=== PATIENT | male | born 1960 | race Caucasian/White ===

== ENCOUNTER 2017-11-06 13:30 | Emergency (ER) | payer OTHER ==
[~2017-11-06] VITALS: Ht 177.8 cm; Wt 136.4 kg
[~2017-11-06 13:30] MED LIST: ALBU18HF INH; ALPR0.257 PO; ANDROGEL TP; ASCO500T8 PO; ASPI-515 PO; CODEINE PO; CYCL10TA50 PO; FLUT1DIS3 IH; HYDR25TA6 PO; LEVO125T PO; LISI-170 PO; MELO15TA24 PO; METF-162 PO; MONT10TA6 PO; OMEP20TA62 PO; PROMETHAZINE PO; SIMV20TA3 PO; TESTOSTERONE IM; VITAMIN B12 PO; VITAMIN B6 PO
[2017-11-06] MEDS ORDERED: OXYcodone/APAP 5/325MG TABLET ONE (14:09)
[2017-11-06] MEDS ORDERED: OXYcodone/APAP 5/325MG TABLET PO ONE (14:30)
[2017-11-06 16:03] VITALS: BP 132/84
== END 2017-11-06 16:05 | disposition home or self-care (01) ==
LOC: ED 15:50
DX: S80.02XA Contusion of left knee, initial encounter (principal); E03.9 Hypothyroidism, unspecified; E11.9 Type 2 diabetes mellitus without complications; I10 Essential (primary) hypertension; I82.412 Acute embolism and thrombosis of left femoral vein
CPT/HCPCS: 29505; 99284

== ENCOUNTER 2017-11-15 13:37 | Observation (INO) | payer OTHER ==
[~2017-11-15] VITALS: Ht 177.8 cm; Wt 135.2 kg
[2017-11-15] MEDS ORDERED: SODIUM CHLORIDE 0.9% 1,000 ML IV ONE (16:18)
[2017-11-15] MEDS ORDERED: SODIUM CHLORIDE FLUSH 10ML SYR IVF ONE (16:30)
[2017-11-15] MEDS ORDERED: ASPIRIN 81 MG TABLET CHEW PO ONE (16:30)
[2017-11-15 16:43] LABS: MEAN CORPUSCULAR HEMOGLOBIN 28.1 pg (27.5-34.5); MEAN CORPUSCULAR HGB CONC 33.2 g/dL (33.2-36.2); MEAN CORPUSCULAR VOLUME 84.8 fL (81-97); MEAN PLATELET VOLUME 7.1 fL (7.4-10.4); PLATELET COUNT 448 x10^3/uL (130-400); RED BLOOD COUNT 6.47 x10^6/uL (4.38-5.82); RED CELL DISTRIBUTION WIDTH 14.6 % (9.4-14.8)
[2017-11-15] MEDS ORDERED: NITROGLYCERIN SINGLE TAB 0.4 MG SL ONE ×2 (16:46→17:33)
[2017-11-15] MEDS ORDERED: ASPIRIN 81 MG TABLET CHEW ONE (16:46)
[2017-11-15] MEDS: NITROGLYCERIN SINGLE TAB 0.4 MG SL PRN ×2 (16:50→17:34)
[2017-11-15 16:55] LABS: ALBUMIN 4.3 g/dL (3.4-5.0); ANION GAP 8 mmol/L (5-15); CALCIUM 9.8 mg/dL (8.5-10.1); CHLORIDE 100 mmol/L (98-107)
[2017-11-15 17:03] LABS: ALANINE AMINOTRANSFERASE 68 U/L (12-78); ALKALINE PHOSPHATASE 103 U/L (45-117); BILIRUBIN,TOTAL 0.8 mg/dL (0.2-1.0); CREATININE 1.14 mg/dL (0.7-1.3); TOTAL PROTEIN 8.3 g/dL (6.4-8.2); TROPONIN I < 0.015 ng/mL (0.000-0.045)
[2017-11-15 17:04] LABS: PROTHROMBIN TIME 10.5 Seconds (9.6-11.5)
[2017-11-15 17:05] LABS: D-DIMER < 0.19 ug/mlFEU (0.00-0.52); PARTIAL THROMBOPLASTIN TIME 28 Seconds (25-31)
[2017-11-15 17:09] LABS: BASOPHILS # (AUTO) 0.06 x10^3/uL (0-0.1); BASOPHILS % (AUTO) 0 % (0-1); EOSINOPHILS % (AUTO) 2 % (1-7); LYMPHOCYTES # (AUTO) 2.63 x10^3/uL (1-3.4); LYMPHOCYTES % (AUTO) 13 % (22-44); MD SCAN; MONOCYTES # (AUTO) 2.22 x10^3/uL (0.2-0.8); MONOCYTES % (AUTO) 11 % (2-9); NEUTROPHILS # (AUTO) 15.03 x10^3/uL (1.8-6.8); NEUTROPHILS % (AUTO) 74 % (42-75)
[2017-11-15] MEDS ORDERED: ACETAMINOPHEN 500 MG TABLET PO ONE (17:30)
[2017-11-15] MEDS ORDERED: ACETAMINOPHEN 500 MG TABLET ONE (17:50)
[2017-11-15] MEDS ORDERED: LABETALOL 5MG/ML, 20ML IVPush PRN (19:00)
[2017-11-15] MEDS ORDERED: ALBUTEROL SULFATE 2.5MG/0.5ML NPPB PRN (19:00)
[2017-11-15] MEDS ORDERED: ACETAMINOPHEN 325 MG TABLET PO PRN (19:00)
[2017-11-15] MEDS ORDERED: NITROGLYCERIN 0.4 MG BOTTLE (25 TABS) SL PRN (19:00)
[2017-11-15] MEDS ORDERED: CYCLOBENZAPRINE 10 MG TABLET PO PRN (19:00)
[2017-11-15] MEDS ORDERED: DEXTROSE 50%, 50ML SYRINGE IVPush PRN (19:30)
[2017-11-15] MEDS ORDERED: GLUCAGON 1 MG IM PRN (19:30)
[2017-11-15] MEDS ORDERED: DEXTROSE 4 GM TAB.CHEW PO PRN (19:30)
[2017-11-15 19:56] VITALS: BP 135/89
[2017-11-15] MEDS ORDERED: ALBUTEROL SULFATE 2.5 MG/3 ML NPPB PRN (20:00)
[2017-11-15] MEDS: SODIUM CHLORIDE FLUSH 10ML SYR IVF SCH (20:06)
[2017-11-15] MEDS: ENOXAPARIN 30 MG/0.3 ML SQ SCH (20:06)
[2017-11-15] MEDS: FAMOTIDINE 20 MG TABLET PO SCH (20:06)
[2017-11-15] MEDS: INSULIN LISPRO 100 UNITS/ML, PEN SQ-INSULIN SCH (20:19)
[2017-11-15] MEDS ORDERED: HYDROcodone/APAP 5/325 TABLET ONE (20:51)
[2017-11-15 20:55] VITALS: BP 121/83
[2017-11-15] MEDS: LISINOPRIL 20 MG TABLET PO SCH (20:55)
[2017-11-15] MEDS ORDERED: HYDROcodone/APAP 5/325 TABLET PO ONE (21:00)
[2017-11-15] MEDS ORDERED: HYDROcodone/APAP 5/325 TABLET PO PRN (22:00)
[2017-11-15 22:19] VITALS: BP_SYST 135; BP_SYST 136; BP_DIAS 89; BP_DIAS 90
[2017-11-15 22:57] LABS: MICROSCOPIC NOT IND
[2017-11-15 23:02] LABS: CULTURE INDICATED? NO
[2017-11-16 00:36] VITALS: BP 136/78
[2017-11-16 01:06] LABS: TROPONIN I < 0.015 ng/mL (0.000-0.045)
[2017-11-16 05:16] LABS: ALBUMIN 3.3 g/dL (3.4-5.0); CALCIUM 8.9 mg/dL (8.5-10.1); CHLORIDE 104 mmol/L (98-107)
[2017-11-16 05:22] LABS: ALANINE AMINOTRANSFERASE 54 U/L (12-78); ALKALINE PHOSPHATASE 78 U/L (45-117); ANION GAP 8 mmol/L (5-15); BILIRUBIN,TOTAL 0.6 mg/dL (0.2-1.0); TOTAL PROTEIN 6.6 g/dL (6.4-8.2)
[2017-11-16 05:23] LABS: MEAN CORPUSCULAR HEMOGLOBIN 28.8 pg (27.5-34.5); MEAN CORPUSCULAR HGB CONC 33.9 g/dL (33.2-36.2); MEAN PLATELET VOLUME 7.1 fL (7.4-10.4); PLATELET COUNT 379 x10^3/uL (130-400); RED BLOOD COUNT 5.56 x10^6/uL (4.38-5.82); RED CELL DISTRIBUTION WIDTH 14.2 % (9.4-14.8)
[2017-11-16 05:25] LABS: HEMOGLOBIN A1C 6.5 % (4.2-6.3)
[2017-11-16] MEDS: INSULIN LISPRO 100 UNITS/ML, PEN SQ-INSULIN SCH ×4 (07:00→19:58)
[2017-11-16 07:05] LABS: BASOPHILS # (AUTO) 0.11 x10^3/uL (0-0.1); BASOPHILS % (AUTO) 1 % (0-1); EOSINOPHILS # (AUTO) 0.34 x10^3/uL (0-0.4); EOSINOPHILS % (AUTO) 3 % (1-7); LYMPHOCYTES # (AUTO) 2.64 x10^3/uL (1-3.4); LYMPHOCYTES % (AUTO) 21 % (22-44); MD SCAN; MONOCYTES # (AUTO) 1.65 x10^3/uL (0.2-0.8); MONOCYTES % (AUTO) 13 % (2-9); NEUTROPHILS # (AUTO) 7.93 x10^3/uL (1.8-6.8); NEUTROPHILS % (AUTO) 63 % (42-75)
[2017-11-16] MEDS: ASPIRIN 81 MG TABLET EC PO SCH (08:21)
[2017-11-16] MEDS: FAMOTIDINE 20 MG TABLET PO SCH ×2 (08:21→19:54)
[2017-11-16] MEDS: HYDROCHLOROTHIAZIDE 25 MG TABLET PO SCH (08:21)
[2017-11-16] MEDS: ENOXAPARIN 30 MG/0.3 ML SQ SCH ×2 (08:22→19:54)
[2017-11-16] MEDS: SODIUM CHLORIDE FLUSH 10ML SYR IVF SCH ×2 (08:22→19:54)
[2017-11-16] MEDS: SENNA/DOCUSATE TABLET PO SCH ×2 (08:22→22:09)
[2017-11-16] MEDS: LISINOPRIL 20 MG TABLET PO SCH ×2 (08:22→19:54)
[2017-11-16] MEDS ORDERED: REGADENOSON 0.4 MG/5 ML SYRINGE ONE (08:24)
[2017-11-16 08:30] VITALS: BP 130/83
[2017-11-16] MEDS: FLUTICASONE/VILANTEROL 200-25MCG/INH INH SCH (08:56)
[2017-11-16] MEDS: LEVOTHYROXINE 125 MCG TABLET PO SCH (08:57)
[2017-11-16] MEDS ORDERED: LEVOTHYROXINE 125 MCG TABLET PO SCH (09:00)
[2017-11-16] MEDS: POTASSIUM CHLORIDE 10 MEQ in SODIUM CHLORIDE 0.9% 1,000 ML IV SCH (13:41)
[2017-11-16 14:30] VITALS: BP 141/92
[2017-11-16] MEDS ORDERED: OMNIPAQUE 350 MG/ML, 100ML BOTTLE ONE (14:40)
[2017-11-16 19:39] VITALS: BP 126/83
[2017-11-16] MEDS: SIMVASTATIN 20 MG TABLET PO SCH (19:54)
[2017-11-17 03:59] VITALS: BP 126/85
[2017-11-17 05:24] LABS: MEAN CORPUSCULAR HEMOGLOBIN 28.6 pg (27.5-34.5); MEAN CORPUSCULAR HGB CONC 33.5 g/dL (33.2-36.2); MEAN CORPUSCULAR VOLUME 85.4 fL (81-97); MEAN PLATELET VOLUME 6.8 fL (7.4-10.4); PLATELET COUNT 343 x10^3/uL (130-400); RED BLOOD COUNT 5.85 x10^6/uL (4.38-5.82); RED CELL DISTRIBUTION WIDTH 14.6 % (9.4-14.8)
[2017-11-17 05:34] LABS: CHLORIDE 105 mmol/L (98-107)
[2017-11-17] MEDS: POTASSIUM CHLORIDE 10 MEQ in SODIUM CHLORIDE 0.9% 1,000 ML IV SCH ×2 (05:34→14:30)
[2017-11-17] MEDS: LEVOTHYROXINE 125 MCG TABLET PO SCH (05:35)
[2017-11-17 05:49] LABS: ALANINE AMINOTRANSFERASE 57 U/L (12-78); ALBUMIN 3.4 g/dL (3.4-5.0); ALKALINE PHOSPHATASE 85 U/L (45-117); ANION GAP 5 mmol/L (5-15); BILIRUBIN,TOTAL 0.5 mg/dL (0.2-1.0); CALCIUM 8.6 mg/dL (8.5-10.1); TOTAL PROTEIN 6.8 g/dL (6.4-8.2)
[2017-11-17 05:56] LABS: BASOPHILS # (AUTO) 0.09 x10^3/uL (0-0.1); BASOPHILS % (AUTO) 1 % (0-1); EOSINOPHILS # (AUTO) 0.37 x10^3/uL (0-0.4); EOSINOPHILS % (AUTO) 3 % (1-7); LYMPHOCYTES % (AUTO) 19 % (22-44); MD SCAN; MONOCYTES # (AUTO) 1.99 x10^3/uL (0.2-0.8); MONOCYTES % (AUTO) 18 % (2-9); NEUTROPHILS # (AUTO) 6.31 x10^3/uL (1.8-6.8); NEUTROPHILS % (AUTO) 58 % (42-75)
[2017-11-17] MEDS: ENOXAPARIN 30 MG/0.3 ML SQ SCH (07:00)
[2017-11-17] MEDS: INSULIN LISPRO 100 UNITS/ML, PEN SQ-INSULIN SCH ×3 (07:00→15:45)
[2017-11-17 07:22] VITALS: BP 133/85
[2017-11-17] MEDS: SENNA/DOCUSATE TABLET PO SCH ×2 (09:00→15:41)
[2017-11-17] MEDS: FLUTICASONE/VILANTEROL 200-25MCG/INH INH SCH (09:11)
[2017-11-17] MEDS: SODIUM CHLORIDE FLUSH 10ML SYR IVF SCH (09:17)
[2017-11-17 14:06] VITALS: BP 142/91
[2017-11-17] MEDS: LISINOPRIL 20 MG TABLET PO SCH (15:41)
[2017-11-17] MEDS: ASPIRIN 81 MG TABLET EC PO SCH (15:41)
[2017-11-17] MEDS: FAMOTIDINE 20 MG TABLET PO SCH (15:41)
[2017-11-17] MEDS: SIMVASTATIN 20 MG TABLET PO SCH (15:44)
[2017-11-17] MEDS: HYDROCHLOROTHIAZIDE 25 MG TABLET PO SCH (15:45)
== END 2017-11-17 16:38 | disposition home or self-care (01) ==
LOC: ED 17:14 → EDIP 17:27 → INTOOBSV 17:27 → 5SO 18:27
PROVIDERS: ADMIT Family Medicine; ATTEND Family Medicine
DX: R07.89 Other chest pain (principal); E10.9 Type 1 diabetes mellitus without complications; E78.5 Hyperlipidemia, unspecified; I10 Essential (primary) hypertension; K76.0 Fatty (change of) liver, not elsewhere classified; E03.9 Hypothyroidism, unspecified; D72.829 Elevated white blood cell count, unspecified; K21.9 Gastro-esophageal reflux disease without esophagitis; J44.9 Chronic obstructive pulmonary disease, unspecified; G89.29 Other chronic pain; N20.0 Calculus of kidney; Z80.0 Family history of malignant neoplasm of digestive organs; Z82.49 Family history of ischemic heart disease and other diseases of the circulatory system
CPT/HCPCS: 36415; 71045; 74177; 76700; 78452; 80053; 81003; 82962; 83036; 83690; 83880; 84484; 85025; 85379; 85610; 85730; 93005; 93017; 96360; 96361; 96372; 99285; A9502; C9898; G0378; J1650; J1815; J2785; J3480; J7030; Q9967

== ENCOUNTER 2021-03-25 19:01 | Emergency (ER) | payer OTHER ==
[~2021-03-25] VITALS: Ht 175.3 cm; Wt 142.2 kg
[~2021-03-25 19:01] MED LIST changes: -ASPI-515 PO; +ASPI-963 PO; +SIMV20TA19 PO; -SIMV20TA3 PO
--- NOTE | 2021-03-25 20:16 | NUR ---
PATIENT UPDATED ON PLAN OF CARE AND PROCESS OF TESTING WITHIN ER. PATIENT VERBALIZED UNDERSTANDING. US OF RIGHT LEG TAKING PLACE AT BEDSIDE.
[2021-03-25 20:29] LABS: MEAN CORPUSCULAR HEMOGLOBIN 28.8 pg (27.5-34.5); MEAN CORPUSCULAR HGB CONC 33.9 g/dL (33.2-36.2); MEAN PLATELET VOLUME 6.9 fL (7.4-10.4); PLATELET COUNT 422 x10^3/uL (130-400); RED BLOOD COUNT 5.32 x10^6/uL (4.38-5.82); RED CELL DISTRIBUTION WIDTH 14.4 % (9.4-14.8)
[2021-03-25 20:31] LABS: ALBUMIN 3.6 g/dL (3.4-5.0); ANION GAP 6 mmol/L (5-15); CALCIUM 8.6 mg/dL (8.5-10.1); CHLORIDE 106 mmol/L (98-107); CREATININE 0.92 mg/dL (0.7-1.3)
[2021-03-25 20:35] LABS: TROPONIN I < 0.015 ng/mL (0.000-0.045)
[2021-03-25 20:49] LABS: BAND#(MANUAL) 0.11 x10^3/uL; BANDS%(MANUAL) 1 % (0-7); EOS#(MANUAL) 0.22 x10^3/uL (0.0-0.4); EOS% (MANUAL) 2 % (1-7); LYMPH#(MANUAL) 2.51 x10^3/uL (1-3.4); LYMPHS% (MANUAL) 23 % (22-44); MONOS#(MANUAL) 1.85 x10^3/uL (0.3-2.7); MONOS% (MANUAL) 17 % (2-9); SEG#(MANUAL) 6.21 x10^3/uL (1.8-6.8); SEGS% (MANUAL) 57 % (42-75)
[2021-03-25 20:50] LABS: <PLATELET ESTIMATE> INCREASED; <PLT MORPHOLOGY> NORMAL PLT MORPH; <RBC MORPHOLOGY> NORMAL; <WBC MORPHOLOGY> NORMAL
[2021-03-25] MEDS ORDERED: OMNIPAQUE 350 MG/ML, 100ML BOTTLE ONE (21:00)
--- NOTE | 2021-03-25 21:32 | NUR ---
PATIENT UPDATED ON PLAN OF CARE. NO NOTED NEEDS AT THIS TIME. BED IN LOWEST LOCKED POSITION, SIDE RAILS X 2 UP, CALL LIGHT WITHIN REACH. WILL CONTINUE TO MONITOR.
[2021-03-25] MEDS ORDERED: MAALOX/HYOSCYAMINE/LIDOCAINE 45 ML BTL ONE (21:49)
[2021-03-25] MEDS ORDERED: MAALOX/HYOSCYAMINE/LIDOCAINE 45 ML BTL PO ONE (22:00)
--- NOTE | 2021-03-25 22:58 | NUR ---
TROP SENT PATIENT UPDATED ON PLAN OF CARE. NO NOTED NEEDS AT THIS TIME. BED IN LOWEST LOCKED POSITION, SIDE RAILS X 2 UP, CALL LIGHT WITHIN REACH. WILL CONTINUE TO NADIA
[2021-03-25 23:19] LABS: TROPONIN I < 0.015 ng/mL (0.000-0.045)
--- NOTE | 2021-03-25 23:51 | NUR ---
PATIENT UPDATED ON PLAN OF CARE. WILL AWAIT FURTHER ORDERS. PATIENT HAS REQUESTED TO BE DISCHARGED HOME VERSUS BEING ADMITTED TO HOSPITAL. PATIENT VERBALIZED UNDERSTANDING OF SELF CARE AND FOLLOW UP CARE AT HOME.
[2021-03-26 00:03] VITALS: BP 124/74
== END 2021-03-26 00:04 | disposition home or self-care (01) ==
LOC: ED 19:11
DX: R07.2 Precordial pain (principal); L03.115 Cellulitis of right lower limb; M79.661 Pain in right lower leg; I10 Essential (primary) hypertension; E03.9 Hypothyroidism, unspecified; J45.909 Unspecified asthma, uncomplicated; E11.9 Type 2 diabetes mellitus without complications; E78.5 Hyperlipidemia, unspecified
CPT/HCPCS: 36415; 71045; 71275; 80048; 82040; 84484; 85025; 93005; 93971; 99285; Q9967